=== PATIENT | male | born 1965 | race Caucasian/White ===

== ENCOUNTER 2017-01-23 20:52 | Emergency (ER) | payer OTHER ==
[~2017-01-23] VITALS: Ht 170.2 cm; Wt 81.8 kg
[2017-01-23 20:57] VITALS: Ht 170.2 cm; Wt 81.8 kg
[2017-01-23] MEDS ORDERED: ACETAMINOPHEN 500 MG TAB PO STA (21:36)
[2017-01-23 21:46] VITALS: BP 122/75; PULSE 118; RESP 16; TEMP 100.2
[2017-01-23] MEDS ORDERED: GLIP5TAB13 PO (21:53)
[2017-01-23] MEDS ORDERED: METF500T4 PO (21:53)
[2017-01-23] MEDS ORDERED: ATOR20TA38 PO (21:53)
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
[2017-01-23 22:00] LABS: ADD UMIC NO; UR ASCORBIC ACID NEGATIVE (NEGATIVE); UR BILIRUBIN (Dip) NEGATIVE (NEGATIVE); UR BLOOD (Dip) NEGATIVE (NEGATIVE); UR CLARITY CLEAR (CLEAR); UR COLOR YELLOW (YELLOW); UR GLUCOSE (Dip) 3+ mg/dL (NEGATIVE); UR KETONES (Dip) TRACE mg/dL (NEGATIVE); UR LEUKOCYTE ESTERASE (Dip) NEGATIVE Leu/ul (NEGATIVE); UR NITRITE (Dip) NEGATIVE (NEGATIVE); UR SPECIFIC GRAVITY (Dip) 1.029 (1.003-1.030); UR TOTAL PROTEIN (Dip) NEGATIVE (NEGATIVE); UR UROBILINOGEN (Dip) NEGATIVE (NEGATIVE)
[2017-01-23] MEDS ORDERED: IBUPROFEN 200 MG TAB PO ONE (22:00)
--- NOTE | 2017-01-23 22:51 | RADRPT ---
PROCEDURE: XR Chest. CLINICAL INDICATION: Fever. TECHNIQUE: Single frontal view of the chest. COMPARISON: None. FINDINGS: The cardiomediastinal silhouette is within normal limits. Likely changes of a degree of hyperinflati on of COPD with changes of centrolobular emphysema. Likely left nipple shadow at the left lung base. The left lung base is mildly underpenetrated and there is mild elevation of the right lung base. The lungs are otherwise clear. No signs of pleural fluid or pneumothorax are seen. The osseous struc tures and soft tissues are unremarkable. IMPRESSION: No evidence for active cardiopulmonary disease. RPTAT: [facility] Physician Reymundo Date Time Electronically viewed and signed by Physician Reymundo on 01/23/2017 22:51 RS/
[2017-01-23] MEDS ORDERED: ACET500C5 PO (22:58)
[2017-01-23] MEDS ORDERED: ONDA4TAB14 PO (22:58)
[2017-01-23] MEDS ORDERED: IBUP400T22 PO (22:58)
== END 2017-01-23 23:04 | disposition home or self-care (01) ==
LOC: FTE 20:52
DX: B34.9 Viral infection, unspecified (principal); E11.9 Type 2 diabetes mellitus without complications; Z79.84 Long term (current) use of oral hypoglycemic drugs
CPT/HCPCS: 71010; 81003; Z7502; Z7610